=== PATIENT | female | born 1970 | race Caucasian/White ===

== ENCOUNTER 2020-12-25 14:11 | Emergency (ER) | payer MEDICARE, OTHER ==
[~2020-12-25] VITALS: Ht 162.6 cm; Wt 124.7 kg
[2020-12-25 15:19] LABS: BASOPHILS ABSOLUTE AUTO 0.05 K/mm3 (0.00-0.23); BASOPHILS PERCENT AUTO 0 % (0-2); EOSINOPHILS ABSOLUTE AUTO 0.04 K/mm3 (0.00-0.68); EOSINOPHILS PERCENT AUTO 0 % (0-6); Hematocrit 34.9 % (33.0-51.0); Hemoglobin 11.5 g/dL (11.5-16.0); IMMATURE GRAN ABSOLUTE AUTO 0.08 K/mm3 (0.00-0.10); IMMATURE GRAN PERCENT AUTO 1 % (0-1); LYMPHOCYTES ABSOLUTE AUTO 1.75 K/mm3 (0.84-5.20); LYMPHOCYTES PERCENT AUTO 11 % (21-46); MONOCYTES ABSOLUTE AUTO 1.46 K/mm3 (0.16-1.47); MONOCYTES PERCENT AUTO 9 % (4-13); Mean Corpuscular HGB 29.3 pg (26.0-34.0); Mean Corpuscular Volume 89 fL (80-100); Mean Platelet Volume 12.2 fL (9.1-12.4); NEUTROPHILS ABSOLUTE AUTO 13.09 K/mm3 (1.96-9.15); NEUTROPHILS PERCENT AUTO 80 % (41-73); Platelet Count 166 K/mm3 (150-400); RDW Coefficient Variation 13.2 % (11.7-14.2); RDW Standard Deviation 43.4 fL (35.1-46.3); Red Blood Cell Count 3.93 M/mm3 (3.80-5.20); White Blood Cell Count 16.47 K/mm3 (4.00-11.30)
[2020-12-25 15:37] LABS: Alanine Aminotransfer (ALT/SGP 29 U/L (12-78); Albumin, Blood 2.8 g/dL (3.4-5.0); Albumin/Globulin Ratio 0.7 (0.8-1.8); Alk Phos 84 U/L (50-136); Anion Gap 7 mmol/L (6-16); Aspartate Aminotrans (AST/SGOT 17 U/L (12-37); Bilirubin, Total 0.6 mg/dL (0.1-1.0); Blood Urea Nitrogen 10 mg/dL (8-24); Bun/Creatinine Ratio 14.3 (12.0-20.0); CO2, Blood 24 mmol/L (21-32); Calcium, Blood 8.6 mg/dL (8.5-10.1); Chloride, Blood 97 mmol/L (98-108); Globulin, Blood 4.2 g/dL (2.2-4.0); Glomerular Filtration Rate >60 (60-); Glucose, Blood 386 mg/dL (70-99); Sodium, Blood 128 mmol/L (136-145)
[2020-12-25] MEDS ORDERED: GABA400 PO (16:30)
[2020-12-25] MEDS ORDERED: LOMOTIL 2.5-0.1 EACH PO (16:30)
[2020-12-25] MEDS ORDERED: ESCI20 PO (16:31)
[2020-12-25] MEDS ORDERED: ZIPRASIDONE HCL80 MG PO (16:31)
[2020-12-25] MEDS ORDERED: SYNTHROID75 MCG PO (16:32)
[2020-12-25] MEDS ORDERED: OMEP20ER PO (16:32)
[2020-12-25] MEDS ORDERED: COMBIVENT RESPIM4 G1 INH (16:33)
[2020-12-25] MEDS ORDERED: GLIP5 PO (17:23)
[2020-12-25] MEDS ORDERED: PROP10 PO (17:24)
== END 2020-12-25 19:25 | disposition short-term general hospital (02) ==
LOC: ER 14:11
PROVIDERS: Emergency Medicine
DX: L03.221 Cellulitis of neck (principal); J02.9 Acute pharyngitis, unspecified; R09.02 Hypoxemia; E11.9 Type 2 diabetes mellitus without complications; J44.9 Chronic obstructive pulmonary disease, unspecified
CPT/HCPCS: 36415; 70491; 80053; 83605; 85025; 87040; 96365-59; 96375; 99285-25; J0295; J1100; J2270; J2405; J7030; J7042; Q9967